=== PATIENT | male | born 1970 | race African-American/Black ===

== ENCOUNTER 2016-05-20 11:31 | Inpatient (IN) | payer OTHER ==
[2016-05-16 14:36] LABS: BASOPHILS 0.4 %; BASOPHILS ABSOLUTE 0.02 10/3/uL (0.0-0.16); EOSINOPHILS 2.5 %; EOSINOPHILS ABSOLUTE 0.14 10/3/uL (0.0-0.53); IMMATURE GRANULOCYTES 0.4 %; IMMATURE GRANULOCYTES ABSOLUTE 0.02 10/3/uL (0.0-0.11); LYMPHOCYTES 35.7 %; LYMPHOCYTES ABSOLUTE 2.03 10/3/uL (0.67-4.30); MEAN CORPUS HGB CONC 34.1 g/dL (32.0-36.0); MEAN CORPUSCULAR HEMOGLOB 33.5 pg (26.0-34.0); MEAN CORPUSCULAR VOLUME 98.3 fL (80-100); MEAN PLATELET VOLUME 9.3 fL (9.2-13.0); MONOCYTES 6.9 %; MONOCYTES ABSOLUTE 0.39 10/3/uL (0.21-1.20); NEUTROPHILS 54.1 %; NEUTROPHILS ABSOLUTE 3.08 10/3/uL (2.02-8.40); PLATELET COUNT 267 10/3/uL (150-400); WHITE BLOOD CELLS 5.7 10/3/uL (4.5-10.5)
[2016-05-16 14:37] LABS: HEMATOCRIT 41.1 % (40.0-51.0); MANUAL DIFF NO %; RED CELL COUNT 4.18 10/6/uL (4.7-6.1)
[2016-05-16 14:45] LABS: ASCORBIC ACID (UR NOT ORDER) NEG (NEG); BILIRUBIN, URINE NEGATIVE (NEG); KETONE, URINE NEGATIVE (NEG); LEUKOCYTE ESTERASE(NOT OR NEG (NEG); WBC (NOT ORDERED) (RFLEX) 3 (0-5)
[2016-05-16 14:49] LABS: PARTIAL THROMBO TIME 24.7 SEC (22.5-37.2); PROTIME (NOT ORD) 13.1 SEC (12.0-14.5)
[2016-05-16 14:56] LABS: A/G RATIO 1.1 (0.7-1.9); ALBUMIN 3.8 G/DL (3.5-5.0); ALKALINE PHOSPHATASE 105 U/L (45-117); BUN (BLOOD UREA NITROGEN) 14 MG/DL (6-23); CHLORIDE, SERUM 110 MMOL/L (96-112); CO2 (CARBON DIOXIDE) 24 MMOL/L (24-34); CREATININE 1.28 MG/DL (0.70-1.30); GFR AFRICAN AMERICAN 77 ML/MIN (>=60); GFR NON AFRICAN AMERICAN 66 ML/MIN (>=60); GLOBULIN 3.5 G/DL (2.5-4.1); GLUCOSE, SERUM 102 MG/DL (60-99); POTASSIUM, SERUM 4.6 MMOL/L (3.5-5.3); SGOT(AST) 31 U/L (5-40); SGPT(ALT) 47 U/L (5-65); SODIUM, SERUM 141 MMOL/L (135-148); TOTAL BILIRUBIN 0.3 MG/DL (0-1.2); TOTAL PROTEIN 7.3 G/DL (6.0-8.5)
--- NOTE | ~2016-05-20 | OP ---
Record Of Operation [facility] [address] [place]. [address] NAME: BEST AUGUSTINE : 68 STATUS : ADM IN PAT#: [id number] AGE: 46 ADM/REG DATE : 05/20/16 MR#: [id number] REPORT SERV DATE: 05/20/16 DICTATED BY: KANCHAN SUERO DATE: 05/20/16 REPORT STATUS : Draft TRANSCRIBED BY: MODL DATE: 05/20/16 DATE OF PROCEDURE: 05/20/2016 PREOPERATIVE DIAGNOSIS: Right hip avascular necrosis. POSTOPERATIVE DIAGNOSIS: Right hip avascular necrosis. PROCEDURE: Right total hip arthroplasty. SURGEON: Kanchan Suero M.D. SUPERVISOR CUSTOMER COMPLAINT SERVICE: Jordyn Bowie ANESTHESIA: General anesthetic. ESTIMATED BLOOD LOSS: 100 mL. FLUIDS: 1600 mL crystalloid. TOURNIQUET TIME: Zero. COMPLICATIONS: None. INDICATION: A 46-year-old gentleman presented to office with long-standing bilateral hip pain with previous left hip arthroplasty for avascular necrosis and a previous right hip core decompression with continued pain. Radiographs and CT scan indicating avascular necrosis. The patient opted for operative treatment having failed conservative management while understanding the possible risks and complications, and potential outcomes. He understood and agreed to proceed. He was identified in the preop holding area. His extremity was marked with YES. The patient was then taken to the operative suite, placed in supine position on operative table. A general anesthetic was successfully administered. The patient had the bilateral lower extremities prepped and draped to expose the thigh circumferentially on the right side with a bag on the left leg. Prepped and draped up to the groin. A time-out was then called. He was identified, correct operative extremity identified, verification of antibiotic Ancef administration. The patient had a longitudinal incision placed in the lateral aspect of the thigh, three fingerbreadths lateral to the anterior superior iliac spine at the posterior border of the tensor fascia. The incision was carried down through skin and subcutaneous tissues. Hemostasis was achieved with electrocautery. Tensor fascia was identified and sharply incised longitudinally in line with the incision. The abductor muscle was then identified and a blunt retractor was placed inferior to this over the superior neck. Dissection was carried down over the anterior capsule and medial neck and a second Cobra blunt retractor was placed. A Shin elevator was then used to elevate the head of the rectus off the acetabulum superiorly and a sharp tip Kober retractor was placed. The patient had a capsulectomy performed and capsulotomy. Retractor was then placed within the joint capsule, superior and inferior to expose the femoral neck. Oscillating saw was then used and a napkin ring found of femoral neck was Record Of Operation [facility] [address] [place]. [address] NAME: BEST AUGUSTINE : 68 STATUS : ADM IN PAT#: [id number] AGE: 46 ADM/REG DATE : 05/20/16 MR#: [id number] REPORT SERV DATE: 05/20/16 DICTATED BY: KANCHAN SUERO DATE: 05/20/16 REPORT STATUS : Draft TRANSCRIBED BY: VICKI DATE: 05/20/16 resected. It was then removed. A corkscrew device was then utilized to remove the femoral head, was noted to be burnished and worn. Attention was then turned back to the acetabulum with a Gonzalez retractor placed in the inferior acetabulum. The acetabular labrum was resected. Sequential reamers from the [place] set were used reaming up to a 51. A trial of 52 cup was placed, checked under fluoroscopy, noted to be acceptable. This was then removed, and the final hemispherical cup was called for. A titanium hemispherical solid back shell, size 52 mm, Alpha code D, this was tapped into place. A dome plug was then placed and then the Trident X3 0 degree polyethylene insert, 32 mm inside diameter, Alpha code D was then tapped into place. Attention was then turned to the femur with hip was adducted and externally rotated. The superior posterior capsule resected. Gonzalez retractor was placed along the posterior femoral neck and a double prong retractor PCL was placed over the greater trochanter to protect the abductors. A cookie cutter osteotome was then utilized to enter the posterior lateral neck area. A straight awl was then used to open the femoral canal. Sequential broaches were then used from the Lionel Accolade 2 system, calcar reaming was performed. A #3 trial broach was then trialed with 132 degree neck angle negative for head ball. Intraoperative fluoroscopy assured adequate position of acetabular shell as well as the orientation of the trial femur which was deemed to be undersized. The hip was then re-dislocated and sequential broaching was continued up to a #5 where again a trial reduction was performed, but at this time with a 0 head 130 degree neck angle, which was deemed appropriate. Leg lengths were checked directly off the patient as well the femur was noted to be stable in external rotation. Hip was then re-dislocated. Final components were called for Accolade 230 degree neck angle hip stem, size #5. This was tapped into place. A retrial with a 0 degree neck length head ball was trialed which was deemed to be appropriate under intraoperative fluoroscopy and examination with leg lengths measured off the well leg, and stability and external rotation. Hip was then re-dislocated, and the final head ball was called for a Biolox delta ceramic V40 femoral head, outside diameter 32 mm, neck length +0 mm. This was tapped into place. Hip was then relocated. Final fluoroscopy pictures were obtained. An examination indicated stability of the hip joint with equal leg lengths. The hip was then irrigated with copious amounts of saline and tranexamic acid solution with Marcaine. Morphine, saline were then injected into the pericapsular tissues and into the joint. Vancomycin powder was also placed in the joint. The tensor fascia was closed using a #1 running Vicryl suture. Again, vancomycin powder was placed in subcutaneous tissues. This was closed in 2 layers with 0 Vicryl, and 2-0 Vicryl interrupted suture and then a #2 STRATAFIX barbed sutures placed in a subcuticular fashion. The remainder of tranexamic acid solution was injected into the hip joint of 30 mL in subcutaneous tissues. These skin edge was approximated with Mastisol Steri-Strips. Aquacel dressing was then placed. The patient then had the drapes removed, was awakened, extubated, transferred to [facility], and taken to the postanesthesia care unit in satisfactory condition having tolerated the procedure well. Sponge and needle counts were correct at the conclusion of the procedure. EC/MODL Kanchan Suero M.D. Record Of Operation [address] [address] NAME: BEST AUGUSTINE : 68 STATUS : ADM IN PAT#: [id number] AGE: 46 ADM/REG DATE : 05/20/16 MR#: [id number] REPORT SERV DATE: 05/20/16 DICTATED BY: KANCHAN SUERO DATE: 05/20/16 REPORT STATUS : Draft TRANSCRIBED BY: FRANKIEL DATE: 05/20/16 / [id number] CC: Kanchan Suero M.D.
[~2016-05-20 11:31] MED LIST: ENDOCET1 TA3 PO; LEVOTHYROXIN50 MCG PO; LISINOPRIL40 MG PO; LOP50 PO; NORV10 PO; PROTONIX PO; PROZ10 PO; REMERON45 MG PO; TIVICAY50 MG PO; TRUVADA PO
[2016-05-21 05:33] LABS: HEMATOCRIT 39.7 % (40.0-51.0); HEMOGLOBIN 13.8 g/dL (13.6-17.8)
[2016-05-21 05:49] LABS: CALCIUM, SERUM 9.1 MG/DL (8.5-10.4); CHLORIDE, SERUM 101 MMOL/L (96-112); CO2 (CARBON DIOXIDE) 26 MMOL/L (24-34); CREATININE 1.38 MG/DL (0.70-1.30); GFR AFRICAN AMERICAN 70 ML/MIN (>=60); GFR NON AFRICAN AMERICAN 60 ML/MIN (>=60); POTASSIUM, SERUM 4.4 MMOL/L (3.5-5.3); SODIUM, SERUM 137 MMOL/L (135-148)
[2016-05-21 05:52] LABS: BUN (BLOOD UREA NITROGEN) 9 MG/DL (6-23); GLUCOSE, SERUM 123 MG/DL (60-99)
[2016-05-21] MEDS ORDERED: ASAB PO (07:30)
[2016-05-21] MEDS ORDERED: PERCOCET 7.5/321 TAB PO (07:31)
== END 2016-05-21 10:59 | disposition home or self-care (01) | DRG 470 ==
LOC: SDC/OF 11:31 → 3JRC 17:21
PROVIDERS: Orthopaedic Surgery
PROC: 0SR902A Replacement of Right Hip Joint with Metal on Polyethylene Synthetic Substitute, Uncemented, Open Approach (ICD-10-PCS; principal; 2016-05-20 12:30)
DX: M87.851 Other osteonecrosis, right femur (principal); Z96.641 Presence of right artificial hip joint; I10 Essential (primary) hypertension; E03.9 Hypothyroidism, unspecified; F32.9 Major depressive disorder, single episode, unspecified; Z21 Asymptomatic human immunodeficiency virus [HIV] infection status; Z80.41 Family history of malignant neoplasm of ovary; Z80.42 Family history of malignant neoplasm of prostate; Z88.5 Allergy status to narcotic agent; Z79.899 Other long term (current) drug therapy; F17.210 Nicotine dependence, cigarettes, uncomplicated; K21.9 Gastro-esophageal reflux disease without esophagitis
CPT/HCPCS: 36415; 71020; 80048; 80053; 81001; 85014; 85018; 85025; 85610; 85730; 86850; 86900; 86901; 87641; 88304; 88311; 93005; 97110-GP; 97161-GP; 97166-GO; A9270-GY; C1776; J0690; J1170; J2250; J2270; J2274; J2405; J2710; J3010; J3370

== ENCOUNTER 2016-05-21 22:29 | Emergency (ER) | payer OTHER ==
[~2016-05-21 22:29] MED LIST changes: +ASAB PO; +PERCOCET 7.5/321 TAB PO
== END 2016-05-22 01:47 | disposition home or self-care (01) ==
LOC: ER 22:29
DX: M79.604 Pain in right leg (principal); G89.18 Other acute postprocedural pain; I10 Essential (primary) hypertension; K21.9 Gastro-esophageal reflux disease without esophagitis; F32.9 Major depressive disorder, single episode, unspecified; F17.200 Nicotine dependence, unspecified, uncomplicated; Z96.641 Presence of right artificial hip joint; Z88.5 Allergy status to narcotic agent; Z79.82 Long term (current) use of aspirin; Z79.899 Other long term (current) drug therapy
CPT/HCPCS: 72170; 96374; 96375; 99283; J1170; J2405